=== PATIENT | male | born 1940 | race Caucasian/White ===

== ENCOUNTER → 2019-04-01 09:38 | Outpatient (CLI) | payer MEDICARE, SELFPAY ==
[2019-04-01 10:57] LABS: Alanine Aminotransferase 34 IU/L (21-72); Albumin 4.3 g/dL (3.5-5.0); Albumin Globulin Ratio 1.5 (1.0-2.8); Alkaline Phosphatase 59 U/L (38-126); Aspartate Aminotransferase 38 IU/L (17-59); BUN Creatinine Ratio 31.4 (6-22); Bilirubin Total 1.5 mg/dL (0.2-1.3); Blood Urea Nitrogen 22 mg/dL (9-20); Calcium 9.2 mg/dL (8.4-10.2); Carbon Dioxide 28 mmol/L (22-32); Chloride 101 mmol/L (98-107); Cholesterol 160 mg/dL (140-199); Estimated Glomerular Filt Rate > 60.0 mL/min (>60); Globulin 2.8 g/dL (1.7-4.1); Glucose 100 mg/dL (80-110); HDL Cholesterol 47 mg/dL (40-60); HEMOLYSIS < 15 (0-50); LDL Cholesterol Calculated 102 mg/dL (<100); Potassium 3.8 mmol/L (3.4-5.1); Sodium 136 mmol/L (137-145); Total Protein 7.1 g/dL (6.3-8.2); Triglycerides 53 mg/dL (35-150)
[2019-04-01 10:59] LABS: Add Manual Diff / Slide Review NO; Basophils Absolute Auto 100 /uL (0-100); Basophils Percent Auto 1.4 % (0-2); Eosinophils Absolute Auto 0 /uL (0-450); Eosinophils Percent Auto 1.2 % (2-4); Hematocrit 38.8 % (41-53); Hemoglobin 13.1 g/dL (13.5-17.5); Lymphocytes Absolute Auto 1100 /uL (1100-4500); Lymphocytes Percent Auto 28.5 % (25-40); Mean Corpuscular HGB Conc 33.8 % (30-36); Mean Corpuscular Hemoglobin 29.2 PG (26-34); Mean Corpuscular Volume 86.2 fL (80-100); Monocytes Absolute Auto 300 /uL (0-900); Monocytes Percent Auto 7.9 % (3-14); Neutrophils Absolute Auto 2500 /uL (1500-7000); Platelet Count 164 X10^3/uL (150-400); Red Blood Cell Count 4.51 X10^6/uL (4.5-5.9); Red Cell Distribution Width 23.8 % (11.6-14.8)
[2019-04-01 11:26] LABS: Prostate Specific Antigen Scrn 0.697 ng/mL (0.1-4.0)
[2019-04-01 11:37] LABS: Anisocytosis 2+; Thyroid Stimulating Hormone 1.23 uIU/mL (0.47-4.68)
== END ==
PROVIDERS: PCP Family Medicine; Visit Provider Family Medicine
DX: E78.2 Mixed hyperlipidemia (principal); Z12.5 Encounter for screening for malignant neoplasm of prostate
CPT/HCPCS: 36415; 80053; 80061; 84443; 85025; G0103

== ENCOUNTER 2019-11-24 11:49 | Day surgery (SDC) | payer MEDICARE, SELFPAY ==
[2019-11-24] VITALS (7 sets, daily range): BP systolic 102–138; BP diastolic 57–73; PULSE 60–77; RESP 13–20; TEMP 36.3–37; O2SAT 98–100; BMI 20.2
[2019-11-24] MEDS: SODIUM CHLORIDE 0.9% 1,000 ML 200 ML IV (12:25)
--- NOTE | 2019-11-24 12:53 | P.HP_ITS ---
History of Present Illness History of Present Illness Date Patient Seen: 11/24/19 Time Patient Seen: 12:53 Chief complaint: [id number] Narrative: This is a 79-year-old man with history of 4 prior colonoscopies, and polyps found each time. Since his last colonoscopy he denies any melena, hematochezia, unexplained abdominal pain, or unexplained weight loss. He has no personal or family history of colon cancer. And no other family history of significant colon polyps. ROS: Thirteen system review is otherwise negative other than as mentioned below and in HPI. PE: GENERAL: Well groomed and cooperative. Appears stated age. Answers questions promptly and appropriately. Vital signs noted. HENT: Normocephalic, atraumatic. Hearing intact. Oral mucosa is pink and moist. EYES: Conjunctiva pink, sclera white, no periorbital swelling. CARDIOVASCULAR: Regular rate. No pedal edema. RESPIRATORY: Non-tachypneic, breathing comfortably on room air. GASTROINTESTINAL: Abdomen soft and non-distended GENITALURINARY: No flank tenderness. MUSCULOSKELETAL: Equal tone and mass bilaterally. SKIN: Warm, dry, soft, appropriate color for ethnicity. No other lesions, rashes, or wounds. NEURO: Alert and Oriented X 3. No gross sensory deficits, or cognitive issues. PSYCH: Appropriate affect and mood. Patient History Medical History GERD (gastroesophageal reflux disease) (Acute) Hernia (Acute) Sinus drainage (Acute) Wears glasses (Acute) Surgical History History of spinal fusion Status post arthroscopy Family & Social History Social History: household members spouse,significant other Tobacco & Substance use: Smoking Status Never smoker alcohol intake current alcohol intake frequency 0-2 drinks per day Substance Use Type does not use Meds Home Medications and Allergies Home Medications Medication Instructions Recorded Confirmed Type minocycline 100 mg PO PRN PRN 11/24/19 History Allergies Allergy/AdvReac Type Severity Reaction Status Date / Time acetaminophen [From TYLOX] Allergy Unknown Verified 11/24/19 12:25 oxycodone [From TYLOX] Allergy Unknown Verified 11/24/19 12:25 Exam Vital Signs (past 8 hours): - 11/24/19 12:34 Temperature 97.3 F L Pulse Rate 75 Respiratory Rate 15 Blood Pressure 138/73 Pulse Oximetry 98 Oxygen Delivery Method Room Air Assessment & Plan Assessment and plan (1) Personal history of colonic polyps: Current visit: Yes Status: Acute Assessment & Plan narrative: The risks and benefits of surveillance colonoscopy and possible polypectomy were discussed with the patient. Risk of bleeding, p erforation, need for additional procedures, risks of anesthesia were discussed. He desires to proceed with his colonoscopy procedure. Time Spent With Patient Time with patient: 15-24 minutes Quality VTE Deep Vein Thrombosis/Pulmonary Embolism Present on Admission: No
[2019-11-24] MEDS: MIDAZOLAM 5 MG/5 ML VIAL IV (13:16)
[2019-11-24] MEDS: fentaNYL 250 MCG/5 ML INJ IV (13:17)
--- NOTE | 2019-11-24 13:30 | PM.OP.ENDO ---
Operative Date/Time/Diagnoses Date of procedure: 11/24/19 Time of procedure: 13:30 Pre-op diagnosis: Personal history of colon polyps Post-op diagnosis: same (No current polyps on this procedure) Procedure & Clinicians Study performed: Surveillance Colonoscopy Same procedure as scheduled: Yes Indications: This is a 79-year-old man with personal history of colon polyps found on colonoscopy 5 years ago and on all preceding colonoscopies Surgeon: Lizbeth Griffith Procedure Notes SCOAP/Timeout: Performed Procedure in detail: The patient was brought to the room and placed in left lateral decubitus position with all bony prominences padded. A time-out was performed and then the patient was given procedural sedation starting with [4] mg of Versed and [100] mcg of fentanyl. A total of 5 mg of Versed and 200 micro g of fentanyl were given for the procedure. Vitals were monitored throughout the procedure and remained stable. Once adequately sedated the procedure was begun. A rectal exam was performed revealing [no abnormalities]. The colonoscope was then introduced to the rectum and advanced to the cecum in the usual fashion. [The colon was very tortuous and required multiple maneuvers to reach the cecum.]The cecum was identified by the mucosal tri-fold, and the ileocecal valve. The scope was then retracted while rotating side to side and examining each mucosal fold. [No polyps, masses or other abnormalities were seen.] At the conclusion of the procedure retroflexion was performed and [small grade 1-2 internal hemorrhoids without stigmata of bleeding were seen]. The scope was then withdrawn from the rectum the procedure was concluded. The patient tolerated the procedure well and was transferred to the PACU in stable condition. Scope withdrawal time: 8 Sedation minutes: 30 Findings: internal hemorrhoids Specimen(s): none sent Complications: none Impression: No polyps on this procedure Post-procedure Recommendations: Colonscopy in 5 years (Because of history of colon polyps on all previous colonoscopies. Should be done only if patient is healthy enough for repeat colonoscopy at that time. Should be discussed between the patient and their primary care doctor.) Follow up: as needed Disposition: PACU
== END 2019-11-24 14:19 | disposition home or self-care (01) ==
PROVIDERS: Family Provider Family Medicine; PCP Family Medicine; Visit Provider Surgery
PROC: 0DJD8ZZ Inspection of Lower Intestinal Tract, Via Natural or Artificial Opening Endoscopic (ICD-10-PCS; CPT 45378; principal; 2019-11-24 13:00)
DX: Z12.11 Encounter for screening for malignant neoplasm of colon (principal); Z86.010 Personal history of colon polyps; K64.0 First degree hemorrhoids
CPT/HCPCS: G0105; 99152; 99153; J2250; J3010

== ENCOUNTER → 2020-06-11 13:36 | Outpatient (CLI) | payer MEDICARE, SELFPAY ==
[2020-06-12 17:08] LABS: COVID19 Sendout Not Detected (Not Detect)
== END ==
PROVIDERS: PCP Family Medicine; Visit Provider Physician Assistant
DX: Z11.59 Encounter for screening for other viral diseases (principal)
CPT/HCPCS: 87635

== ENCOUNTER 2020-06-14 08:27 | Day surgery (SDC) | payer MEDICARE, SELFPAY ==
[2020-06-14 09:03] VITALS: BP 102/62; PULSE 60; RESP 16; TEMP 36.3; O2SAT 100; BMI 20.5
[2020-06-14] MEDS: CATARACT EYE COMPOUND (10 DROPS/SYRINGE) 3 DROPS EYE-OP (09:10)
[2020-06-14] MEDS: PROPARACAINE 0.5% OPHTH SOL 2 DROPS EYE-OP (09:14)
--- NOTE | 2020-06-14 09:59 | PM.PREOP ---
Pre-operative Note Interval Note History & Physical reviewed/Exam performed by Physician: Yes Changes to H&P: No
--- NOTE | 2020-06-14 09:59 | PM.OP.1 ---
Operative Date/Time/Diagnoses Pre-op diagnosis: Nuclear cataract right eye Procedure & Clinicians Procedure: Cataract Surgery Same procedure as scheduled: Yes Surgeon: Ismael Gracia Anesthesia Type: MAC +/- and Sedation Operative Notes Procedure in detail: Patient brought to the operating suite. Tetracaine drops placed in the right eye. Marking instrument was used to herminia the vertical and horizontal meridians. Patient was prepped and draped in sterile manner. Wire lid speculum was placed in the eye. Betadine drops were placed on the eye. This was irrigated. Lidocaine jelly was placed on the eye. A paracentesis port was created with a side-port blade. 0.1 mL 1% preservative free lidocaine was injected into the anterior chamber. The anterior chamber was deepened with viscoelastic. 2.6 mm keratome was used to create a temporal clear corneal incision. Cystotome and Utrata forceps were used to create continuous tear capsulorrhexis. Balanced salt solution was used to hydro dissect the nucleus. The phacoemulsification handpiece was inserted and the nucleus was removed using the stop and chop technique. The irrigation aspiration handpiece was inserted and the remaining cortex was removed. Anterior chamber was deepened with viscoelastic. An Kennedy [id number] intraocular lens with a power of 18.0 was injected into the capsular bag. Irrigation aspiration handpiece was inserted and the remaining viscoelastic was removed. Then lens was rotated to the 180 degree meridian. Incision was hydrated with balanced salt solution and found to be leak free with pressure with Weck-Ivis sponges. 0.1 mL Vigamox injected anterior chamber. 0.3 mL Kenalog 10 mg was injected subconjunctivally. Lid speculum was removed. The patient left the operating room in excellent condition. Complications: none Post-operative Condition: stable Disposition: same day surgery
[2020-06-14] MEDS: PHENYLEPHRINE/LIDOCAINE VIAL (OR) 0.2 ML EYE-OP (10:20)
[2020-06-14] MEDS: LIDOCAINE JELLY 2% 5 ML 1 APPLIC TOP (10:21)
[2020-06-14] MEDS: CHONDROIDTIN/SOD HYALURONATE 1.05 ML SYRINGE INTRAOCULA (10:21)
[2020-06-14] MEDS: TRIAMCINOLONE 50 MG/5 ML VIAL INJ (10:21)
[2020-06-14] MEDS: MOXIFLOXACIN INJ 5 MG/ML VIAL EYE-OP (10:21)
[2020-06-14] MEDS: TETRACAINE 0.5% OPHTH DROPS 4 ML 2 DROPS EYE-OP (10:22)
[2020-06-14] MEDS: BALANCED SALT IRRIG SOLN NO.2 500 ML, EPINEPHrine 1 MG IRR (10:22)
[2020-06-14 10:52] VITALS: BP 103/62; PULSE 63; RESP 16; TEMP 36.6; O2SAT 99
--- NOTE | 2020-06-14 10:53 | SUR.PHASEII ---
1045-Pt dcd in stable condition, VSS, gait steady, pt dressed and ready to go. All dc instructions given to pt and pt verbalizes understanding. Dcd via wc to curbside. Iv site dcd and site clear.
== END 2020-06-14 10:45 | disposition home or self-care (01) ==
PROVIDERS: PCP Family Medicine; Referring Provider Ophthalmology; Visit Provider Ophthalmology
PROC: (CPT 66984; principal; 2020-06-14 10:15)
DX: H25.11 Age-related nuclear cataract, right eye (principal)
CPT/HCPCS: 66984; J0171; J2250; J3301; V2787

== ENCOUNTER → 2020-06-25 08:50 | Outpatient (CLI) | payer MEDICARE, SELFPAY ==
[2020-06-26 18:58] LABS: COVID19 Sendout Not Detected (Not Detect)
== END ==
PROVIDERS: PCP Family Medicine; Visit Provider Nurse Practitioner
DX: Z11.59 Encounter for screening for other viral diseases (principal)
CPT/HCPCS: 87635

== ENCOUNTER 2020-06-28 08:32 | Day surgery (SDC) | payer MEDICARE, SELFPAY ==
[2020-06-28] MEDS: PROPARACAINE 0.5% OPHTH SOL 2 DROPS EYE-OP (09:15)
[2020-06-28] MEDS: CATARACT EYE COMPOUND (10 DROPS/SYRINGE) 3 DROPS EYE-OP (09:20)
[2020-06-28 09:25] VITALS: BP 101/61; PULSE 62; RESP 18; TEMP 35.7; O2SAT 100; BMI 20.3
--- NOTE | 2020-06-28 10:20 | PM.PREOP ---
Pre-operative Note Interval Note History & Physical reviewed/Exam performed by Physician: Yes Changes to H&P: No
--- NOTE | 2020-06-28 10:20 | PM.OP.1 ---
Operative Date/Time/Diagnoses Pre-op diagnosis: Nuclear Cataract Left eye Post-op diagnosis: same Procedure & Clinicians Same procedure as scheduled: Yes Surgeon: Ismael Gracia Anesthesia Type: MAC +/- and Sedation Operative Notes Procedure in detail: Patient brought to the operating suite. Tetracaine drops placed in the left eye. Marking instrument was used to herminia vertical and horizontal meridians. Patient was prepped and draped in sterile manner. Wire lid speculum was placed in the eye. Betadine drops were placed on the eye. This was irrigated. Lidocaine jelly was placed on the eye. A paracentesis port was created with a side-port blade. 0.1 mL 1% preservative free lidocaine was injected into the anterior chamber. The anterior chamber was deepened with viscoelastic. 2.6 mm keratome was used to create a temporal clear corneal incision. Cystotome and Utrata forceps were used to create continuous tear capsulorrhexis. Balanced salt solution was used to hydro dissect the nucleus. The phacoemulsification handpiece was inserted and the nucleus was removed using the stop and chop technique. The irrigation aspiration handpiece was inserted and the remaining cortex was removed. Anterior chamber was deepened with viscoelastic. An Kennedy [id number] intraocular lens with a power of 19.0 was injected into the capsular bag. Irrigation aspiration handpiece was inserted and the remaining viscoelastic was removed. The lens was rotated to the 180 degree meridian. Incision was hydrated with balanced salt solution and found to be leak free with pressure with Weck-Ivis sponges. 0.1 mL Vigamox injected anterior chamber. 0.3 mL Kenalog 10 mg was injected subconjunctivally. Lid speculum was removed. The patient left the operating room in excellent condition. Complications: none Post-operative Condition: stable Disposition: same day surgery
[2020-06-28] MEDS: PHENYLEPHRINE/LIDOCAINE VIAL (OR) 0.2 ML EYE-OP (10:59)
[2020-06-28] MEDS: TRIAMCINOLONE 50 MG/5 ML VIAL INJ (11:00)
[2020-06-28] MEDS: LIDOCAINE JELLY 2% 5 ML 1 APPLIC TOP (11:00)
[2020-06-28] MEDS: MOXIFLOXACIN INJ 5 MG/ML VIAL EYE-OP (11:00)
[2020-06-28] MEDS: TETRACAINE 0.5% OPHTH DROPS 4 ML 2 DROPS EYE-OP (11:00)
[2020-06-28] MEDS: CHONDROIDTIN/SOD HYALURONATE 1.05 ML SYRINGE INTRAOCULA (11:00)
[2020-06-28] MEDS: BALANCED SALT IRRIG SOLN NO.2 500 ML, EPINEPHrine 1 MG IRR (11:01)
[2020-06-28 11:16] VITALS: BP 101/55; PULSE 66; RESP 20; TEMP 36.2; O2SAT 100
== END 2020-06-28 11:30 | disposition home or self-care (01) ==
PROVIDERS: PCP Family Medicine; Referring Provider Ophthalmology; Visit Provider Ophthalmology
PROC: (CPT 66984; principal; 2020-06-28 10:15)
DX: H25.12 Age-related nuclear cataract, left eye (principal)
CPT/HCPCS: 66984; J0171; J2250; J3301; V2787

== ENCOUNTER → 2020-08-10 16:42 | Outpatient (CLI) | payer MEDICARE, SELFPAY ==
--- NOTE | 2020-08-10 16:44 | DI.RAD.S_ITS ---
PROCEDURE: XR CHEST 2V INDICATIONS: Weight loss TECHNIQUE: 2 views of the chest were acquired. COMPARISON: None. FINDINGS: Surgical changes and devices: None. Lungs and pleura: Lungs are clear. No pleural effusions or pneumothorax. Mediastinum: Mediastinal contours are normal. Heart size is normal. Bones and chest wall: No suspicious bony abnormalities. Soft tissues appear unremarkable. IMPRESSION: No acute cardiopulmonary disease process. Dictated by: Willa Paulson MD, PhD on 08/11/2020 at 14:55 Approved by: Willa Paulson MD, PhD on 08/11/2020 at 14:56
[2020-08-10 17:54] LABS: Add Manual Diff / Slide Review NO; Basophils Absolute Auto 0 /uL (0-100); Basophils Percent Auto 0.9 % (0-2); Eosinophils Absolute Auto 0 /uL (0-450); Eosinophils Percent Auto 1.1 % (2-4); Hematocrit 35.7 % (41-53); Lymphocytes Absolute Auto 1000 /uL (1100-4500); Lymphocytes Percent Auto 23.7 % (25-40); Mean Corpuscular HGB Conc 33.5 % (30-36); Mean Corpuscular Hemoglobin 29.2 PG (26-34); Mean Corpuscular Volume 87.2 fL (80-100); Monocytes Absolute Auto 300 /uL (0-900); Monocytes Percent Auto 5.9 % (3-14); Neutrophils Absolute Auto 3000 /uL (1500-7000); Neutrophils Percent Auto 68.4 % (50-75); Platelet Count 167 X10^3/uL (150-400); Red Cell Distribution Width 25.1 % (11.6-14.8); White Blood Cell Count 4.4 X10^3/uL (4.5-11.0)
[2020-08-10 18:17] LABS: Anisocytosis 2+; Poikilocytosis 1+
[2020-08-10 18:18] LABS: Alanine Aminotransferase 26 IU/L (<50); Albumin 4.2 g/dL (3.5-5.0); Albumin Globulin Ratio 1.6 (1.0-2.8); Alkaline Phosphatase 71 U/L (38-126); Aspartate Aminotransferase 39 IU/L (17-59); BUN Creatinine Ratio 34.3 (6-22); Bilirubin Total 0.8 mg/dL (0.2-1.3); Blood Urea Nitrogen 24 mg/dL (9-20); C-Reactive Protein Quant < 0.5 mg/dL (<1.0); Calcium 9.5 mg/dL (8.4-10.2); Carbon Dioxide 30 mmol/L (22-32); Chloride 101 mmol/L (98-107); Cholesterol 138 mg/dL (140-199); Estimated Glomerular Filt Rate > 60.0 mL/min (>60); Globulin 2.6 g/dL (1.7-4.1); Glucose 86 mg/dL (80-110); HDL Cholesterol 50 mg/dL (40-60); HEMOLYSIS < 15 (0-50); LDL Cholesterol Calculated 78 mg/dL (<100); Sodium 136 mmol/L (137-145); Total Protein 6.8 g/dL (6.3-8.2); Triglycerides 48 mg/dL (35-150)
[2020-08-10 18:22] LABS: Erythrocyte Sedimentation Rate 6 MM/HR (0-15)
[2020-08-10 18:45] LABS: Prostate Specific Antigen Scrn 0.817 ng/mL (0.1-4.0)
[2020-08-10 18:46] LABS: Thyroid Stimulating Hormone 1.53 uIU/mL (0.47-4.68)
[2020-08-13 09:00] LABS: HEMOLYSIS < 15 (0-50); Iron 116 ug/dL (49-181)
[2020-08-13 09:11] LABS: Percent Iron Saturation 36 % (20-50); Total Iron Binding Capacity 320 ug/dL (261-462); Transferrin 234 mg/dL (206-381)
[2020-08-13 09:51] LABS: Vitamin B12 537 pg/mL (239-931)
[2020-08-15 13:09] LABS: Ferritin 114 ng/mL (18-464)
== END ==
PROVIDERS: PCP Family Medicine; Referring Provider Family Medicine; Visit Provider Family Medicine
DX: R63.4 Abnormal weight loss (principal); E78.2 Mixed hyperlipidemia; D64.9 Anemia, unspecified; Z12.5 Encounter for screening for malignant neoplasm of prostate
CPT/HCPCS: 36415; 71046; 80053; 80061; 82607; 82728; 83540; 83550; 84443; 85025; 85651; 86140; G0103

== ENCOUNTER → 2020-08-10 16:58 | Outpatient (CLI) | payer MEDICARE, SELFPAY | PROVIDERS: PCP Family Medicine; Referring Provider Family Medicine; Visit Provider Family Medicine | DX: R63.4 Abnormal weight loss (principal) ==

== ENCOUNTER → 2022-11-09 13:38 | Outpatient (CLI) | payer MEDICARE, SELFPAY ==
[2022-11-09 15:53] LABS: Creatinine Urine Random 49.3 mg/dL
[2022-11-09 16:47] LABS: Microalbumin Urine Random < 0.6 mg/dL (0-1.6)
== END ==
PROVIDERS: PCP Family Medicine; Referring Provider Family Medicine; Visit Provider Family Medicine
DX: Z00.00 Encounter for general adult medical examination without abnormal findings (principal); D64.9 Anemia, unspecified; E78.2 Mixed hyperlipidemia; R63.4 Abnormal weight loss
CPT/HCPCS: 82043; 82570

== ENCOUNTER → 2024-02-24 14:44 | Outpatient (CLI) | payer MEDICARE, SELFPAY ==
[2024-02-24 15:24] LABS: Add Manual Diff / Slide Review NO; Basophils Absolute Auto 0 /uL (0-100); Basophils Percent Auto 0.5 % (0-2); Eosinophils Absolute Auto 0 /uL (0-450); Eosinophils Percent Auto 0.8 % (2-4); Hematocrit 34.9 % (41-53); Hemoglobin 11.6 g/dL (13.5-17.5); Lymphocytes Absolute Auto 700 /uL (1100-4500); Lymphocytes Percent Auto 19.4 % (25-40); Mean Corpuscular HGB Conc 33.1 % (30-36); Mean Corpuscular Hemoglobin 27.5 PG (26-34); Monocytes Absolute Auto 200 /uL (0-900); Monocytes Percent Auto 5.4 % (3-14); Neutrophils Absolute Auto 2800 /uL (1500-7000); Neutrophils Percent Auto 73.9 % (50-75); Platelet Count 162 X10^3/uL (150-400); Red Blood Cell Count 4.21 X10^6/uL (4.5-5.9); Red Cell Distribution Width 31.5 % (11.6-14.8); White Blood Cell Count 3.8 X10^3/uL (4.5-11.0)
[2024-02-24 15:39] LABS: Anisocytosis 4+
[2024-02-24 15:41] LABS: Alanine Aminotransferase 21 IU/L (<50); Albumin 4.4 g/dL (3.5-5.0); Albumin Globulin Ratio 1.8 (1.0-2.8); Alkaline Phosphatase 71 U/L (38-126); Aspartate Aminotransferase 32 IU/L (17-59); BUN Creatinine Ratio 38.7 (6-22); Blood Urea Nitrogen 24 mg/dL (9-20); Carbon Dioxide 29 mmol/L (22-32); Chloride 101 mmol/L (98-107); Cholesterol 144 mg/dL (140-199); Estimated Glomerular Filt Rate > 60 mL/min (>60); Globulin 2.4 g/dL (1.7-4.1); Glucose 87 mg/dL (80-110); HDL Cholesterol 49 mg/dL (40-60); HEMOLYSIS < 15 (0-50); LDL Cholesterol Calculated 87 mg/dL (<100); Potassium 3.9 mmol/L (3.4-5.1); Sodium 135 mmol/L (137-145); Total Protein 6.8 g/dL (6.3-8.2); Triglycerides 39 mg/dL (35-150)
[2024-02-24 16:09] LABS: Prostate Specific Antigen Scrn 0.781 ng/mL (0.1-4.0); TSH w/ Reflex to FT4 1.33 uIU/mL (0.47-4.68)
[2024-02-25 09:22] LABS: Apolipoprotein B 78 mg/dL (<90)
== END ==
PROVIDERS: PCP Family Medicine; Referring Provider Family Medicine; Visit Provider Family Medicine
DX: Z12.5 Encounter for screening for malignant neoplasm of prostate (principal); E78.2 Mixed hyperlipidemia; D64.9 Anemia, unspecified; R63.4 Abnormal weight loss
CPT/HCPCS: 36415; 80053; 80061; 82172; 84443; 85025; G0103

== ENCOUNTER → 2024-08-10 12:19 | Outpatient (CLI) | payer MEDICARE, SELFPAY ==
[2024-08-10 15:04] LABS: Basophils Absolute Auto 0 /uL (0-100); Basophils Percent Auto 0.5 % (0-2); Eosinophils Absolute Auto 0 /uL (0-450); Eosinophils Percent Auto 0.2 % (2-4); Hemoglobin 11.9 g/dL (13.5-17.5); Lymphocytes Absolute Auto 900 /uL (1100-4500); Lymphocytes Percent Auto 27.6 % (25-40); Mean Corpuscular Hemoglobin 27.5 PG (26-34); Mean Corpuscular Volume 83.5 fL (80-100); Monocytes Absolute Auto 100 /uL (0-900); Monocytes Percent Auto 3.1 % (3-14); Neutrophils Absolute Auto 2300 /uL (1500-7000); Neutrophils Percent Auto 68.6 % (50-75); Platelet Count 147 X10^3/uL (150-400); Red Blood Cell Count 4.31 X10^6/uL (4.5-5.9); Red Cell Distribution Width 27.9 % (11.6-14.8); White Blood Cell Count 3.3 X10^3/uL (4.5-11.0)
[2024-08-10 15:06] LABS: Add Manual Diff / Slide Review SLIDE REVIEW
[2024-08-10 15:11] LABS: HEMOLYSIS < 15 (0-50); Iron 102 ug/dL (49-181)
[2024-08-10 15:14] LABS: Lactate Dehydrogenase 239 U/L (120-246)
[2024-08-10 15:24] LABS: Percent Iron Saturation 35 % (20-50); Total Iron Binding Capacity 291 ug/dL (261-462); Transferrin 217 mg/dL (206-381)
[2024-08-10 15:26] LABS: Anisocytosis 2+; Poikilocytosis 1+
[2024-08-10 15:48] LABS: Ferritin 127 ng/mL (18-464)
== END ==
PROVIDERS: PCP Family Medicine; Referring Provider Family Medicine; Visit Provider Family Medicine
DX: D64.9 Anemia, unspecified (principal); E78.2 Mixed hyperlipidemia
CPT/HCPCS: 36415; 82728; 83540; 83550; 83615; 85025